=== PATIENT | male | born 1980 | race Caucasian/White ===

== ENCOUNTER 2021-06-07 19:30 | Emergency (ER) | payer SELFPAY ==
[2021-06-07] MEDS: LORazepam 2 MG/ML SDV IM PRN (19:53)
[2021-06-07] MEDS: Glucagon,Human Recombinant 1 MG Vial IM PRN (19:54)
[2021-06-07] MEDS: NIFEdipine 10 MG Cap PO ONE (20:41)
[2021-06-07 22:08] VITALS: BP 152/106; PULSE 104
== END 2021-06-07 21:55 | disposition home or self-care (01) ==
LOC: FB.ED 19:30
DX: T18.198A Other foreign object in esophagus causing other injury, initial encounter (principal)
CPT/HCPCS: 96372; 99282; 99283; A9270-GY; J1610; J2060